=== PATIENT | female | born 1945 | race Caucasian/White ===

== ENCOUNTER 2019-05-11 08:19 | Day surgery (SDC) | payer MEDICARE, MEDICAID ==
[2019-05-11] VITALS (15 sets, daily range): BP systolic 132–180; BP diastolic 73–107
[~2019-05-11] VITALS: Ht 165.1 cm; Wt 88.9 kg
[2019-05-11] MEDS ORDERED: normal saline 1000ml 1,000 ML IV PRN (08:55)
[2019-05-11] MEDS ORDERED: fentaNYL/PF 50MCG/1 ML 2ML syringe IV PRN (08:55)
[2019-05-11] MEDS ORDERED: midazolam 2 mg/2 ml injection IV PRN (08:55)
[2019-05-11] MEDS ORDERED: NEXIUM (08:56)
[2019-05-11] MEDS ORDERED: SERT100T10 PO (08:56)
[2019-05-11] MEDS ORDERED: GLIM4TAB4 PO (08:56)
[2019-05-11] MEDS ORDERED: LISINOPRIL (08:56)
[2019-05-11] MEDS ORDERED: JANUVIA (08:56)
[2019-05-11 09:22] LABS: BASOPHILS # (AUTO) 0.1 X10'3 (0-0.2); BASOPHILS % (AUTO) 0.6 % (0-1); EOSINOPHILS # (AUTO) 0.1 X10'3 (0-0.9); EOSINOPHILS % (AUTO) 1.5 % (0-6); HEMATOCRIT 41.2 % (35.0-45.0); HEMOGLOBIN 13.5 g/dl (12.0-16.0); LYMPHOCYTES # (AUTO) 1.7 X10'3 (1.1-4.8); LYMPHOCYTES % (AUTO) 18.7 % (21-51); MEAN CORPUSCULAR HEMOGLOBIN 28.7 PG (27.0-31.0); MEAN CORPUSCULAR HGB CONC 32.7 g/dL (33.0-36.5); MEAN CORPUSCULAR VOLUME 87.6 FL (78-98); MEAN PLATELET VOLUME 8.1 FL (7.4-10.4); MONOCYTES # (AUTO) 0.7 X10'3 (0-0.9); MONOCYTES % (AUTO) 7.3 % (2-12); NEUTROPHILS # (AUTO) 6.5 X10'3 (1.8-7.7); NEUTROPHILS % (AUTO) 71.9 % (42-75); PLATELET COUNT 238 X10'3 (140-440); RED CELL DISTRIBUTION WIDTH 16.5 % (11.5-14.5); WHITE BLOOD COUNT 9.1 X10'3 (4.5-11.0)
[2019-05-11] MEDS ORDERED: midazolam 2 mg/2 ml injection ONE (09:22)
[2019-05-11] MEDS ORDERED: fentaNYL/PF 50MCG/1 ML 2ML syringe ONE (09:22)
[2019-05-11 09:25] LABS: ALBUMIN 3.7 G/DL (3.4-5.0); ANION GAP 13 (8-16); BLOOD UREA NITROGEN 28 MG/DL (7-18); BUN/CREATININE RATIO 20.9 (6.6-38.0); CALCIUM 9.4 MG/DL (8.5-10.1); CHLORIDE 105 MMOL/L (99-107); CREATININE 1.34 MG/DL (0.40-0.90); GLUCOSE 125 MG/DL (70-104); POTASSIUM 4.3 MMOL/L (3.5-5.1); SODIUM 142 MMOL/L (135-145); TOTAL CARBON DIOXIDE 24.3 MMOL/L (24-32); eGFR 39 ML/MIN
[2019-05-11] MEDS ORDERED: gelatin sponge, absorbable (Gelfoam 12-7MM) sponge TP ONE ×2 (09:43→10:30)
== END 2019-05-11 12:40 | disposition home or self-care (01) ==
LOC: SSTAY O 08:19
PROVIDERS: ATTEND Radiology Vascular & Interventional Radiology
DX: I89.8 Other specified noninfective disorders of lymphatic vessels and lymph nodes (principal); I70.213 Atherosclerosis of native arteries of extremities with intermittent claudication, bilateral legs; I10 Essential (primary) hypertension; E11.9 Type 2 diabetes mellitus without complications; F32.9 Major depressive disorder, single episode, unspecified; Z88.5 Allergy status to narcotic agent; Z79.899 Other long term (current) drug therapy
CPT/HCPCS: 36415; 38505; 77012; 80048; 85025; 85610; 88184; 88185; 99152; 99153; J2250; J3010; J7030; 88305